=== PATIENT | female | born 1955 | race Caucasian/White ===

== ENCOUNTER → 2019-06-11 | Outpatient (CLI) | payer OTHER ==
--- NOTE | 2019-06-11 10:31 | Diagnostic Imaging Report ---
MRI of the left shoulder without contrast. History: Shoulder pain. Decreased range of motion. Pain not responding to conservative management Comparison: None Technique: Coronal PD FS, sagital PD FS, and axial PD and PD FS. Findings: Rotator cuff: Rotator cuff tendinosis with articular sided fraying/partial tearing involving the anterior fibers of the supraspinatus and infraspinatus tendons at the humeral insertion site. Reactive change with mild bone marrow edema in the anterior superior humerus. Small cysts within the substance of the supraspinatus muscle. Additionally, there is subscapularis tendinosis. The teres minor tendon is intact. Osseous acromion complex: Type II acromion with mild lateral downsloping. Mild degenerative arthrosis at the acromioclavicular joint with undersurface spurring and mild narrowing of the supraspinatus tendon outlet. Glenohumeral joint: Degeneration and fraying of the labrum. The articular cartilage surfaces are intact. The humeral head is well-seated in the fossa. Biceps tendon: The biceps tendon is intact. Other findings: Negative for muscle denervation or osseous fracture Impression: Rotator cuff tendinosis with articular sided fraying/partial tearing involving the anterior fibers of the supraspinatus and infraspinatus tendons at the humeral insertion site. Reactive change with mild bone marrow edema in the anterior superior humerus. Mild degenerative arthrosis at the acromioclavicular joint with undersurface spurring and mild narrowing of the supraspinatus tendon outlet Signed by: Dr. Maurizio Powell M.D. on 06/11/2019 10:28 AM
--- NOTE | 2019-06-11 11:09 | Diagnostic Imaging Report ---
EXAMINATION: HIPS BILAT TWO VWS(+/- PELVIS) INDICATION: Hip pain COMPARISON: None FINDINGS: AP and frog-leg views of both hips were obtained. Right hip: No acute fracture or dislocation. Alignment is anatomic. Mild right hip joint degenerative changes. Left hip: No acute fracture or dislocation. Alignment is anatomic. Mild left hip joint degenerative changes. Phlebolith in the pelvis. The soft tissues appear unremarkable. IMPRESSION: No acute osseous injury. Mild degenerative changes of both hip joints. Signed by: Anya Hickman MD on 06/11/2019 11:05 AM
== END ==
LOC: MRI 09:06
PROVIDERS: ATTEND Emergency Medicine
DX: M25.512 Pain in left shoulder (principal); M25.552 Pain in left hip; M25.551 Pain in right hip
CPT/HCPCS: 73521

== ENCOUNTER → 2021-11-23 | Outpatient (CLI) | payer MEDICARE, OTHER | LOC: CT 15:27 | PROVIDERS: ATTEND Emergency Medicine | DX: R10.9 Unspecified abdominal pain (principal) | CPT/HCPCS: 74176 ==